=== PATIENT | female | born 1940 | race Caucasian/White ===

== ENCOUNTER 2018-11-21 04:50 | Inpatient (IN) ==
[2018-11-15 15:49] LABS: Appearance,Urine HAZY; Bacteria,Urine FEW /hpf (0); Bilirubin,Urine NEG (NEG); Color,Urine YELLOW; Glucose,Urine (UA) NEGATIVE (NEG); Leukocyte Esterase,Urine 500 /uL (NEG); Mucus,Urine MOD /hpf (0); Protein,Urine 30 mg/dL (NEG); Specific Gravity,Urine 1.018 (1.000-1.035); Urine Blood 0.03 mg/dL (<0.03); Urine Hyaline Cast 3 /lpf (0-2); Urine RBC 8 /hpf (0-1); Urine Squamous Epithelial Cell 4 /hpf (0-4); Urine Transitional Epi Cells 2 /hpf (0-2); Urine WBC 49 /hpf (0-4); Urobilinogen,Urine NEG (NEG)
[2018-11-15 17:29] LABS: Estimated Average Glucose(eAG) 105 mg/dL; Hemoglobin A1C 5.3 % HGB (4.0-6.0)
[2018-11-15 17:32] LABS: Blood Urea Nitrogen 15 mg/dl (8-23)
[2018-11-15 17:54] LABS: Basophils # (Auto) 0 K/mcL (0.0-0.3); Basophils % (Auto) 0.6 % (0.0-2.0); Eosinophils # (Auto) 0.1 K/mcL (0.0-0.7); Granulocytes % (Auto) 66.7 % (38.0-78.0); Lymphocytes # (Auto) 1.4 K/mcL (1.5-4.8); Lymphocytes % (Auto) 23.2 % (15.5-49.0); Mean Cell Volume 91.4 fL (80.0-100.0); Mean Corpuscular HGB Conc 33.3 g/dL (31.0-36.0); Monocytes # (Auto) 0.5 K/mcL (0.1-0.9); Monocytes % (Auto) 7.5 % (1.0-12.0); Platelet Count 357 K/mcL (140-440); RBC 3.95 M/mcL (4.00-5.20); Red Cell Distribution Width 13.5 % (11.5-14.5)
[2018-11-21 05:38] LABS: Appearance,Urine HAZY; Bilirubin,Urine NEG (NEG); Color,Urine DARK YELLOW; Glucose,Urine (UA) NEGATIVE (NEG); Leukocyte Esterase,Urine NEG /uL (NEG); Protein,Urine NEG (NEG); Specific Gravity,Urine 1.025 (1.000-1.035); Urine Blood NEG mg/dL (<0.03)
[2018-11-21] MEDS ORDERED: 0.9 % SODIUM CHLORIDE 9 ML, KETOROLAC 30 MG, ROPIVACAINE HCL/PF 49.5 ML, EPINEPHrine 0.... IJ SCH (06:00)
[2018-11-21] MEDS ORDERED: ceFAZolin 2 GM in DEXTROSE 5% IN WATER 50 ML IV SCH (06:00)
[2018-11-21] MEDS ORDERED: PREGABALIN 75 MG CAPSULE PO SCH (06:00)
[2018-11-21] MEDS ORDERED: oxyCODONE 10 MG TAB.ER.12H PO SCH (06:00)
[2018-11-21] MEDS ORDERED: GENTAMICIN SULFATE 800 MG/20 ML VIAL IR ONE (07:01)
[2018-11-21] MEDS ORDERED: TRANEXAMIC ACID 1,000 MG/10 ML VIAL IV ONE ×2 (07:45→09:13)
[2018-11-21] MEDS ORDERED: PROPOFOL 200 MG/20 ML VIAL IV ONE (07:45)
[2018-11-21] MEDS ORDERED: MIDAZOLAM 5 MG/5 ML VIAL IV ONE (07:45)
[2018-11-21] MEDS ORDERED: ePHEDrine 50 MG/ML AMPUL IV ONE (07:45)
[2018-11-21] MEDS ORDERED: DEXAMETHASONE 4 MG/ML VIAL IV ONE (07:45)
[2018-11-21] MEDS ORDERED: LIDOCAINE HCL/PF 100 MG/5 ML SYRINGE IV ONE (07:45)
[2018-11-21] MEDS ORDERED: ONDANSETRON 4 MG/2 ML VIAL IV ONE (07:45)
[2018-11-21] MEDS ORDERED: ROPIVACAINE HCL/PF 20 ML VIAL IJ ONE (07:45)
[2018-11-21] MEDS ORDERED: PHENYLEPHRINE 10 MG/ML VIAL IV ONE (07:45)
[2018-11-21] MEDS ORDERED: FLUMAZENIL 0.1 MG/ML ML IV PRN (08:47)
[2018-11-21] MEDS ORDERED: BENZOCAINE/MENTHOL 1 LOZENGE PO PRN ×2 (08:47→09:13)
[2018-11-21] MEDS ORDERED: ACETAMINOPHEN 1,000 MG/100 ML BOTTLE IV ONE (08:47)
[2018-11-21] MEDS ORDERED: fentaNYL 100 MCG/2 ML VIAL IV PRN (08:47)
[2018-11-21] MEDS ORDERED: PROMETHAZINE 25 MG/ML VIAL IV PRN (08:47)
[2018-11-21] MEDS ORDERED: MEPERIDINE 25 MG/ML SYRINGE IV PRN (08:47)
[2018-11-21] MEDS ORDERED: diphenhydrAMINE 50 MG/ML VIAL IV PRN (08:47)
[2018-11-21] MEDS ORDERED: NALOXONE HCL 0.4 MG/ML VIAL IV PRN (08:47)
[2018-11-21] MEDS ORDERED: LACTATED RINGERS 250 ML IV PRN (08:47)
[2018-11-21] MEDS ORDERED: ONDANSETRON 4 MG/2 ML VIAL IV PRN ×2 (08:47→09:13)
[2018-11-21] MEDS ORDERED: IPRATROPIUM/ALBUTEROL 3 ML AMPUL.NEB NEB PRN (08:47)
[2018-11-21] MEDS ORDERED: LACTATED RINGERS 1,000 ML IV SCH (09:00)
--- NOTE | 2018-11-21 09:12 | Brief Operative Note ---
Date of procedure: 11/21/18 Pre-op diagnosis: right knee oa Post-op diagnosis: same Procedure: right total knee arthroplasty Grafts/Implants: Yes Anesthesia: spinal Complications: none Surgeon: Colby Fregoso Ironmolder: Araceli Puentes Estimated blood loss (cc): 150 Tourniquet Time (Minutes): 51 Specimens Removed/Pathology: none sent Condition: stable Disposition: PACU
[2018-11-21] MEDS ORDERED: MAGNESIUM HYDROXIDE 30 ML ORAL.SUSP PO PRN (09:13)
[2018-11-21] MEDS ORDERED: POLYETHYLENE GLYCOL 3350 17 GM PACKET PO PRN (09:13)
[2018-11-21] MEDS ORDERED: ONDANSETRON 4 MG ODT TABLET SL PRN (09:13)
[2018-11-21] MEDS ORDERED: FLEETS ADULT ENEMA PR PRN (09:13)
[2018-11-21] MEDS ORDERED: BISACODYL 10 MG SUPP.RECT PR PRN (09:13)
--- NOTE | 2018-11-21 09:51 | XRay Report ---
HISTORY: Postop right knee replacement FINDINGS: There is a well-positioned right total knee prosthesis. No fracture is present. There are calcified plaques in the popliteal artery. IMPRESSION: Well-positioned right knee prosthesis Interpreted and Authenticated by: Jovan Mason 11/21/18
--- NOTE | 2018-11-21 10:18 | Operative Note ---
DATE OF OPERATION: 11/21/2018 PREOPERATIVE DIAGNOSIS: Degenerative joint disease, right knee. POSTOPERATIVE DIAGNOSIS: Degenerative joint disease, right knee. PROCEDURE: Right total knee arthroplasty. SURGEON: Cha Fregoso M.D. HOLE DIGGER OPERATOR SURGEON: Araceli Puentes PA-C ANESTHESIA: Spinal with LMA assist. ESTIMATED BLOOD LOSS: 150 mL COMPLICATIONS: None noted. SPECIMENS REMOVED: None. DRAINS: None. TOURNIQUET TIME: 51 minutes at 300 mmHg. IMPLANTS: DePuy Attune tibial insert fixed bearing posterior stabilized size 6, 6 mm AOX, DePuy Attune femoral posterior stabilized size 6 right narrow cemented, DePuy Attune tibial based fixed bearing size 5 cemented, DePuy Attune patella medialized dome 38 mm cemented AOX, DePuy CMW2 bone cement 20 grams x4. INDICATIONS: The patient has had a long-standing history of worsening pain in the knee that has failed conservative treatment. Radiographs have confirmed advanced degenerative joint disease. After a long discussion about treatment options, the patient elected to proceed with a knee arthroplasty. The risks and benefits were discussed with the patient in detail including, but not limited to, the risks of anesthesia, problems with the heart or lungs related to anesthesia, infection, compromise or injury to the nerves and blood vessels, deep venous thrombosis, pulmonary embolism, pneumonia, continued pain after surgery, worsening pain or symptoms after surgery, swelling, loss of motion, instability, leg length discrepancy, and need for repeat surgery. DESCRIPTION OF PROCEDURE: The patient was seen in the pre-anesthesia waiting room where all questions were answered and the correct side and site were identified and marked. The patient was transferred to the operating room and administered the anesthetic and given pre-operative antibiotics. A time-out was then called. The extremity was prepped and draped, exsanguinated, and the tourniquet was inflated to 300 mmHg. A midline skin incision was then made with a standard medial parapatellar arthrotomy. Debridement of the menisci, ACL, and PCL was performed followed by balancing releases in the medial lateral plane. We then established intramedullary access to both the femur and tibia in a standard fashion. The femoral guide bin was initially placed with the distal femoral guide, pinned into place, and the distal femoral cut was performed and checked with a flat plate. We then turned our attention to the tibia. The intramedullary guide was placed with the proximal tibial cutting block. The block was appropriately positioned off the affected side, varus and valgus was checked with the extra-medullary guide, and the block was pinned into place. The proximal tibial cut was performed and the tibia was prepared for the tibial implant with appropriate rotation. The tibia, femur, and posterior compartment were debrided of osteophytes, loose bodies, and meniscal fragments We then used the gap balancing technique to balance extension with the first two cuts and good balancing was obtained with a 10 millimeter gap block. We turned our attention back to the femur and used the referencing block and implant to size appropriately. Using the gap balancing technique for the flexion space we set our rotation of the femur off the tibial cut. Anesthesia gave the patient 1 gram of Tranexamic Acid via an intravenous route. We placed the 4 in 1 cutting block and made anterior, posterior, and chamfer cuts. Box plasty cuts were then made in a standard fashion for the posterior stabilized prosthesis. We then completed osteophyte release and posterior capsule release from the posterior compartment. Trials were placed and we chose the polyethylene insert thickness that provided the best stability in all planes. With the trials in place, we did a measured resection for a resurfacing patella. We sized the patella and placed the patella trial and performed a lateral facetectomy with the saw and rongeur. Good tracking was obtained. We removed all trials, irrigated and dried all cut surfaces. We cemented the components into place including tibia, femur and patella. We placed a trial liner and held the knee in full extension with the patella compressed while the cement cured. We then removed all excess cement and placed the final polyethylene tibiofemoral component. Irrigation with 3 liters of antibiotic saline was then performed using jet-lavage. We let the tourniquet down and coagulated bleeding vessels. We injected a 100 cubic centimeter volume including Ropivacaine 49.25 cubic centimeters at 5 milligrams per cubic centimeter, Ketorolac 30 milligrams, and Epinephrine 0.5 milligrams into 100 cubic centimeters volume of normal saline. We closed the retinaculum with #2 Stratafix and 0 Vicryl. We closed the subcutaneous tissue and skin in layers out to Dermabond on the skin. A sterile pressure dressing was applied. All needle and sponge counts were correct. The patient was transferred to the recovery room in stable condition. LASHAUN:radha Job ID: [id number] Doc ID: [id number] Cha Fregoso MD
[2018-11-21] MEDS: 0.9 % SODIUM CHLORIDE 1,000 ML IV SCH ×2 (10:30→17:56)
[2018-11-21] MEDS: HYDROcodone/APAP 10/325MG TABLET PO PRN ×2 (13:10→17:08)
[2018-11-21] MEDS: 0.9 % SODIUM CHLORIDE 10 ML SYRINGE IV SCH ×2 (14:12→23:11)
[2018-11-21] MEDS: ceFAZolin 1 GM VIAL IV SCH ×2 (15:10→23:11)
[2018-11-21] MEDS: DOCUSATE SODIUM 100 MG CAPSULE PO SCH (23:08)
[2018-11-21] MEDS: ASPIRIN 325 MG ENTERIC COATED TABLET PO SCH (23:08)
[2018-11-21] MEDS: traMADol 50 MG TABLET PO PRN (23:08)
[2018-11-21] MEDS: SIMVASTATIN 40 MG TABLET PO SCH (23:08)
[2018-11-21] MEDS: SENNOSIDES 1 TABLET PO SCH (23:11)
[2018-11-21] MEDS: METHOCARBAMOL 750 MG TABLET PO PRN (23:12)
[2018-11-22] MEDS: 0.9 % SODIUM CHLORIDE 1,000 ML IV SCH ×3 (01:46→15:15)
[2018-11-22] MEDS: HYDROcodone/APAP 10/325MG TABLET PO PRN ×4 (04:02→18:31)
[2018-11-22] MEDS: traMADol 50 MG TABLET PO PRN (05:57)
[2018-11-22] MEDS: METHOCARBAMOL 750 MG TABLET PO PRN (05:58)
[2018-11-22] MEDS: 0.9 % SODIUM CHLORIDE 10 ML SYRINGE IV SCH ×3 (06:46→20:06)
--- NOTE | 2018-11-22 06:55 | Orthopedic Progress Note ---
Subjective Patient information: Note initiated : 11/22/18 at 6:54 am Service Date, if different from initiated Date: [] Patient: Nancy Montgomery 78 y/o F admitted on 11/21/18 for Right Total Knee Arthroplasty. Chief Complaint: [] Interval history: doing well. slow to mobilize Objective Vital signs: Vital Signs Temp Pulse Pulse Resp BP BP Pulse Ox 11/22/18 03:54 98.9 F 84 14 114/57 94 11/21/18 23:14 97.6 F 80 14 119/63 96 11/21/18 19:06 97.9 F 80 12 103/57 94 11/21/18 17:58 80 80 11/21/18 15:45 80 18 102/58 95 11/21/18 14:20 98.0 F 79 16 109/55 92 11/21/18 13:20 97.6 F 85 16 95/51 93 11/21/18 12:05 97.8 F 76 16 132/57 96 11/21/18 11:54 97.4 F 80 79 16 113/52 116/62 97 11/21/18 11:50 97.4 F 79 16 116/62 97 11/21/18 11:35 98.2 F 78 16 116/62 94 11/21/18 11:05 98.0 F 72 16 116/61 96 11/21/18 10:50 97.9 F 80 18 128/72 92 11/21/18 10:35 98.0 F 79 16 109/55 95 11/21/18 10:33 80 16 92 11/21/18 10:20 97.8 F 83 16 111/52 90 11/21/18 10:05 97.8 F 85 15 113/52 95 11/21/18 09:55 80 14 109/43 98 11/21/18 09:40 75 13 110/45 100 11/21/18 09:35 75 14 112/48 100 11/21/18 09:30 75 14 123/46 100 11/21/18 09:25 97.2 F 77 16 122/44 100 Intake and Output 11/21/18 11/22/18 11/22/18 21:59 05:59 13:59 Intake Total 1769 1475 Output Total 650 Balance 1769 825 Intake: IV 929 975 Sodium Chloride 0.9% 1,000 ml @ 929 975 125 mls/hr IV .Q8H ELIEZER Rx#: [id number] Oral 840 500 Output: Void Amount 650 Other: Meal Dinner Percent of Meal Consumed 100% Feeding Ability Independent Urine Appearance Clear Urine Color Tea Colored Urine Odor Strong Weight 167 lb Intake & Output: Intake & Output 11/21/18 11/22/18 11/22/18 21:59 05:59 13:59 Intake Total 1769 1475 Output Total 650 Balance 1769 825 Weight 167 lb Intake: IV 929 975 Sodium Chloride 0.9% 1,000 ml @ 929 975 125 mls/hr IV .Q8H ELIEZER Rx#: [id number] Oral 840 500 Output: Void Amount 650 Other: Meal Dinner Percent of Meal Consumed 100% Feeding Ability Independent Urine Appearance Clear Urine Color Tea Colored Urine Odor Strong Incision: Yes healing Incision clean and dry: Yes Dressing: Yes clean, Yes dry, Yes intact Weight bearing status: full Neurological exam IM: Yes alert, Yes oriented X3, Yes motor sensory intact, Yes neurovascular intact Extremities exam IM: No calf tenderness, Yes Foot pink and warm, Yes neurovascular intact - Labs CBC & BMP: 11/22/18 04:32 11/15/18 14:10 Labs: Orthopedic Labs 11/15/18 14:11 PT 13.4 INR 1.0 11/22/18 11/15/18 04:32 14:11 Hgb 8.7 L 12.0 Hct 26.3 L 36.1 Assessment and Plan (1) Knee osteoarthritis pod 1 s/p tka wbat pain control dvt prophylaxis d/c planning - home vs rehab Status: Acute
--- NOTE | 2018-11-22 06:56 | Discharge Summary ---
Ortho Discharge - TKA - Patient Instructions Diet: Regular Diet Activity: ambulate with assistive device, weight bearing as tolerated Total Knee Protocol: For Total Knee: Start ROM SRAVAN with stationary bike or rocking chair. Work on gaining full extension of knee. Posterior dislocation precautions provided. Hip abductor strengthening and gait training instructions provided. Apply Cryocuff as instructed. Dressing Care: May shower in 2 days - Problem Maintenance (1) Knee osteoarthritis Status: Acute - Follow Up Plan Follow Up Appointments: Araceli Puentes PA-C [Physician Firmware Manager] - 12/05/18 1:10 pm Disposition: Xfer SNF Prognosis: Good Rehab Potential: Good I certify that the patient requires SNF services: Yes Overall status at discharge: patient is progressing back to baseline
[2018-11-22] MEDS: METOPROLOL SUCCINATE 50 MG TAB.XL.24H PO SCH ×2 (09:28→09:32)
[2018-11-22] MEDS: ASPIRIN 325 MG ENTERIC COATED TABLET PO SCH ×2 (09:28→20:04)
[2018-11-22] MEDS: DOCUSATE SODIUM 100 MG CAPSULE PO SCH ×2 (09:28→20:04)
[2018-11-22] MEDS: FLUTICASONE PROPIONATE SPRAY.NAS NS SCH (09:28)
[2018-11-22] MEDS: SENNOSIDES 1 TABLET PO SCH (20:04)
[2018-11-22] MEDS: SIMVASTATIN 40 MG TABLET PO SCH (20:04)
[2018-11-23] MEDS: HYDROcodone/APAP 10/325MG TABLET PO PRN ×4 (03:19→17:21)
[2018-11-23] MEDS: 0.9 % SODIUM CHLORIDE 1,000 ML IV SCH ×3 (03:20→17:21)
[2018-11-23] MEDS: 0.9 % SODIUM CHLORIDE 10 ML SYRINGE IV SCH ×3 (04:59→20:47)
--- NOTE | 2018-11-23 07:27 | Orthopedic Progress Note ---
Subjective Patient information: Note initiated : 11/23/18 at 7:25 am Service Date, if different from initiated Date: [] Patient: Nancy Montgomery 78 y/o F admitted on 11/21/18 for Right Total Knee Arthroplasty. Chief Complaint: [POD #2 s/p right TKA Nurses state patient seems slightly disoriented at times. She was not completely oriented prior to surgery and this appears the to be her baseline. She denies significant pain, numbness, tingling, SOB, CP or calf pain.] Objective Vital signs: Vital Signs Temp Pulse Pulse Resp BP BP Pulse Ox 11/23/18 07:00 98.1 F 16 112/53 94 11/23/18 03:00 98.4 F 88 18 124/64 95 11/22/18 23:00 98.8 F 88 16 130/56 93 11/22/18 19:00 99.2 F H 90 18 121/62 96 11/22/18 18:00 81 11/22/18 15:00 98.3 F 81 16 141/62 96 11/22/18 14:00 81 11/22/18 11:00 98.8 F 86 16 111/53 93 11/22/18 10:00 73 11/22/18 08:00 80 76 16 94 Intake and Output 11/22/18 11/23/18 11/23/18 21:59 05:59 13:59 Intake Total 240 50 Output Total 550 1800 Balance -310 -1750 Intake: Oral 240 50 Output: Void Amount 550 1800 Other: Meal Lunch Percent of Meal Consumed 100% Feeding Ability Independent Urine Appearance Clear Urine Color Bright Yellow Bright Yellow Urine Odor Normal Normal Weight 165 lb Intake & Output: Intake & Output 11/22/18 11/23/18 11/23/18 21:59 05:59 13:59 Intake Total 240 50 Output Total 550 1800 Balance -310 -1750 Weight 165 lb Intake: Oral 240 50 Output: Void Amount 550 1800 Other: Meal Lunch Percent of Meal Consumed 100% Feeding Ability Independent Urine Appearance Clear Urine Color Bright Yellow Bright Yellow Urine Odor Normal Normal Incision: Yes healing, No draining, No red, No swollen, No inflamed, Yes clean and dry Incision clean and dry: Yes Dressing: Yes clean, Yes dry, Yes intact Weight bearing status: as tolerated Neurological exam IM: Yes alert, Yes motor sensory intact, Yes neurovascular intact Extremities exam IM: Yes Foot pink and warm, Yes neurovascular intact - Periperhal Pulses Peripheral pulses: 2+: dorsalis pedis (L), dorsalis pedis (R), posterior tibialis (L), posterior tibialis (R) - Labs CBC & BMP: 11/23/18 03:55 11/15/18 14:10 Labs: Orthopedic Labs 11/15/18 14:11 PT 13.4 INR 1.0 11/23/18 11/22/18 11/15/18 03:55 04:32 14:11 Hgb 8.5 L 8.7 L 12.0 Hct 25.6 L 26.3 L 36.1 Assessment and Plan (1) Knee osteoarthritis POD #2 s/p right TKA: -d/c to SNF today or tomorrow ([place] swing bed) -pain control -ASA 325mg BID x 4 weeks -PT -WBAT -f/u in office in 10-14 days Status: Acute
[2018-11-23] MEDS: DOCUSATE SODIUM 100 MG CAPSULE PO SCH ×2 (08:21→20:47)
[2018-11-23] MEDS: ASPIRIN 325 MG ENTERIC COATED TABLET PO SCH ×2 (08:21→20:47)
[2018-11-23] MEDS: METOPROLOL SUCCINATE 50 MG TAB.XL.24H PO SCH (08:21)
[2018-11-23] MEDS: FLUTICASONE PROPIONATE SPRAY.NAS NS SCH (08:22)
[2018-11-23] MEDS: SIMVASTATIN 40 MG TABLET PO SCH (20:47)
[2018-11-23] MEDS: SENNOSIDES 1 TABLET PO SCH (20:47)
[2018-11-23] MEDS: METHOCARBAMOL 750 MG TABLET PO PRN (20:48)
[2018-11-24] MEDS: 0.9 % SODIUM CHLORIDE 1,000 ML IV SCH ×2 (01:11→10:44)
[2018-11-24] MEDS: 0.9 % SODIUM CHLORIDE 10 ML SYRINGE IV SCH (05:26)
[2018-11-24] MEDS: HYDROcodone/APAP 10/325MG TABLET PO PRN (05:31)
[2018-11-24] MEDS: METOPROLOL SUCCINATE 50 MG TAB.XL.24H PO SCH (08:28)
[2018-11-24] MEDS: ASPIRIN 325 MG ENTERIC COATED TABLET PO SCH (08:28)
[2018-11-24] MEDS: traMADol 50 MG TABLET PO PRN (08:29)
[2018-11-24] MEDS: DOCUSATE SODIUM 100 MG CAPSULE PO SCH (08:29)
[2018-11-24] MEDS: FLUTICASONE PROPIONATE SPRAY.NAS NS SCH (08:31)
--- NOTE | 2018-11-24 09:40 | Orthopedic Progress Note ---
Subjective Patient information: Note initiated : 11/24/18 at 9:39 am Service Date, if different from initiated Date: [] Patient: Nancy Montgomery 78 y/o F admitted on 11/21/18 for Right Total Knee Arthroplasty. Chief Complaint: [] Interval history: doing well. no complaints Objective Vital signs: Vital Signs Temp Pulse Resp BP BP Pulse Ox 11/24/18 07:52 98.6 F 83 16 114/58 95 11/24/18 04:00 98.6 F 96 H 16 111/50 93 11/24/18 00:00 98.2 F 86 14 112/55 96 11/23/18 19:00 98.6 F 81 16 102/61 96 11/23/18 15:00 97.8 F 18 104/52 93 11/23/18 11:00 98.1 F 85 18 97/53 94 Intake and Output 11/23/18 11/24/18 11/24/18 21:59 05:59 13:59 Intake Total 600 300 Output Total 350 1300 Balance 250 -1000 Intake: Oral 600 300 Output: Void Amount 350 1300 Other: Meal Dinner Percent of Meal Consumed 75% Feeding Ability Assist with Tray Set Up Urine Color Straw Dark Yellow Urine Odor Normal Normal Weight 166 lb 8 oz Intake & Output: Intake & Output 11/23/18 11/24/18 11/24/18 21:59 05:59 13:59 Intake Total 600 300 Output Total 350 1300 Balance 250 -1000 Weight 166 lb 8 oz Intake: Oral 600 300 Output: Void Amount 350 1300 Other: Meal Dinner Percent of Meal Consumed 75% Feeding Ability Assist with Tray Set Up Urine Color Straw Dark Yellow Urine Odor Normal Normal Incision: Yes healing Incision clean and dry: Yes Dressing: Yes clean, Yes dry, Yes intact Weight bearing status: full Neurological exam IM: Yes alert, Yes normal gait, Yes oriented X3, Yes motor sensory intact, Yes neurovascular intact Extremities exam IM: No calf tenderness, Yes Foot pink and warm, Yes neurovascular intact - Labs CBC & BMP: 11/24/18 04:05 11/15/18 14:10 Labs: Orthopedic Labs 11/15/18 14:11 PT 13.4 INR 1.0 11/24/18 11/23/18 11/22/18 04:05 03:55 04:32 Hgb 8.3 L 8.5 L 8.7 L Hct 24.7 L 25.6 L 26.3 L 11/15/18 14:11 Hgb 12.0 Hct 36.1 Assessment and Plan (1) Knee osteoarthritis pod 3 s/p tka wbat pain control dvt prophylaxis d/c planning - swing bed today Status: Acute
== END 2018-11-24 10:00 | DRG 470 ==
LOC: MEDSUR 04:50
PROVIDERS: ADMIT Orthopaedic Surgery Sports Medicine; ATTEND Orthopaedic Surgery Sports Medicine